=== PATIENT | female | born 1940 | race Two or more races ===

== ENCOUNTER → 2025-01-27 | Outpatient (CLI) | payer MEDICAID ==
[2025-01-27 11:14] LABS: Basophils # (auto) 0 10 ^3/uL (0-0.2); Basophils % (auto) 0.9 % (0.0-2.0); Eosinophils # (auto) 0 10 ^3/uL (0-0.8); Hematocrit 41.6 % (36.0-46.0); Hemoglobin 14.1 g/dL (12.2-16.2); Lymphocytes # (auto) 0.8 10 ^3/uL (0.4-5.4); Mean Corpuscular Hemoglobin 30.9 pg (28.0-32.0); Mean Corpuscular Hgb Conc. 33.8 g/dL (32.0-36.0); Mean Corpuscular Volume 91.6 fL (80.0-100.0); Monocytes # (auto) 0.3 10 ^3/uL (0-1.3); Monocytes % (auto) 7.3 % (0.0-12.0); Neutrophils # (auto) 3.6 10 ^3/uL (1.6-8.6); Neutrophils % (auto) 74.8 % (37.0-80.0); Nucleated Red Blood Cells % 0.1 %; Platelet Count (auto) 249 10^3/uL (140-450); Red Blood Cells 4.55 10^6/uL (4.0-5.20); Red Cell Distribution Width 13.4 % (11.8-14.3); White Blood Cell 4.8 10^3/uL (4.4-10.8)
[2025-01-27 11:25] LABS: Urine Blood Negative /uL (Negative); Urine Clarity Clear (Clear); Urine Color Light-Yellow (Yellow); Urine Protein, UAD Negative (Negative); Urine Specific Gravity 1.013 (1.001-1.035); Urine Urobilinogen Normal (Negative); Urine pH 6.5 (5.0-9.0)
[2025-01-27 11:31] LABS: Alanine Aminotransferase 12 U/L (7-40); Albumin 4.7 g/dL (3.2-4.8); Alkaline Phosphatase 50 U/L (46-116); Anion Gap 5 (5-15); Aspartate Aminotransferase 21 U/L (13-40); BUN/Creatinine Ratio 11.9 (10.0-20.0); Bilirubin, Total 0.8 mg/dL (0.2-1.0); Blood Urea Nitrogen 12 mg/dL (9-23); Carbon Dioxide 30 mmol/L (20-31); Chloride 101 mmol/L (98-107); Cholesterol 169 mg/dL (< 200); Glucose 105 mg/dL (74-106); HDL Cholesterol 58 mg/dL (40-59); LDL Cholesterol 99 mg/dL (< 100); Potassium 4.2 mmol/L (3.5-5.1); Sodium 136 mmol/L (136-145); Total Protein 7.5 g/dL (5.7-8.2); Triglycerides 66 mg/dL (< 150)
[2025-01-27 11:49] LABS: Micro Albumin < 3.0 mg/L (<30.0)
== END | disposition home or self-care (01) ==
LOC: LAB 10:47
PROVIDERS: ATTEND Family Medicine
DX: N18.31 Chronic kidney disease, stage 3a (principal); E78.5 Hyperlipidemia, unspecified; R73.9 Hyperglycemia, unspecified; E55.9 Vitamin D deficiency, unspecified; N39.498 Other specified urinary incontinence
CPT/HCPCS: 36415; 80053; 80061; 81003; 82043; 82306; 83036; 84443; 85025

== ENCOUNTER 2025-03-24 16:21 | Outpatient (CLI) | payer MEDICAID | END 2025-03-24 17:00 | disposition home or self-care (01) | LOC: LAB 16:21 | PROVIDERS: ATTEND Family Medicine | DX: Z12.11 Encounter for screening for malignant neoplasm of colon (principal) | CPT/HCPCS: 82270 ==

== ENCOUNTER 2025-06-06 17:40 | Emergency (ER) | payer MEDICAID, OTHER ==
[~2025-06-06] VITALS: Ht 167.6 cm; Wt 55.5 kg
--- NOTE | 2025-06-06 18:26 | ED.PDOC ---
Back pain HPI HPI Comments 35-year-old female presents to the ED with daughter chief complaint left side lower back pain. Patient reports pain 10/10 on pain scale throbbing and shooting in nature. Patient is unable to ambulate due to the pain. States was seen at urgent care several days ago no imaging done notes was prescribed a muscle relaxer which has not been helping. Does state she has two Norcos left from a dental procedure states took one earlier today around 11:00 a.m. which helped her pain and was able to function. Patient reports no known injury. She does denies saddle anesthesia, numbness, weakness, loss of bowel or bladder control or footdrop. Chief Complaint: Pelvic Pain Time Seen by MD: 18:10 Reviewed Notes: Nurses Notes, Medications, Allergies Allergies: Coded Allergies: Ciprofloxacin (Verified Allergy, Unknown, 06/06/25) Iodine (Verified Allergy, Unknown, 06/06/25) Sulfa Antibiotics (Verified Allergy, Unknown, 06/06/25) Home Meds Active Scripts Hydrocodone-Acetaminophen (Hydrocodone Bitartrate/AC 5-325 mg) 1 Tab Tab, 1 TAB PO Q6HP PRN, #20 TAB Prov:ISABELLA MCCURDY MD 06/06/25 Methylprednisolone (Medrol Dosepak) 4 Mg Angel, 4 MG PO UD for 6 Days, #21 TAB UAD Prov:MARLA DUNBAR 06/06/25 Information Source: Patient, Friend Mode of Arrival: Wheelchair Past Medical History Past Medical History (Other): Stage 3 Renal Disease gfr 50 Surgical History: Denies all surgeries SALES ENABLEMENT SPECIALIST History: No Pertinent SALES ENABLEMENT SPECIALIST History Family History Family History: Reviewed,noncontributory to illness Social History Smoker: Non-Smoker Alcohol: Denies ETOH Use Drugs: Denies Drug Use All Other Systems: Reviewed and Negative (see hpi) Physical Exam General Appearance: No Apparent Distress, Normal HEENT: Normal ENT Inspection, Pharynx Normal, TMs Normal Neck: Full Range of Motion, Non-Tender, Normal, Normal Inspection Respiratory: Chest Non-Tender, Lungs Clear, No Accessory Muscle Use, No Respiratory Distress, Normal Breath Sounds Cardiovascular: No Edema, No JVD, No Murmur, No Gallop, Normal Peripheral Pulses, Regular Rate/Rhythm Breast Exam: Deferred Gastrointestinal: No Organomegaly, Non Tender, No Pulsatile Mass, Normal Bowel Sounds, Soft Genitalia: Deferred Pelvic: Deferred Rectal: Deferred Extremities: No calf tenderness, Normal capillary refill, Normal inspection, Normal range of motion, Non-tender, No pedal edema Musculoskeletal : Apperance: Normal Neurologic: Alert, oil inspector II-XII nml as Tested, No Motor Deficits, Normal Affect, Normal Mood, No Sensory Deficits Cerebellar Function: Normal Reflexes: Normal Skin: Dry, Normal Color, Warm Lymphatic: No Adenopathy Was a procedure done? Was a procedure done?: No Back Pain Differential Dx Differential Diagnosis: Fracture, Musculoskeletal Pain, Strain X-Ray, Labs, Meds, VS Vital Signs Date Time Temp Pulse Resp B/P (MAP) Pulse Ox O2 Delivery O2 Flow Rate FiO2 06/06/25 19:12 68 20 97 Room Air 06/06/25 19:12 98.4 68 20 130/73 (92) 97 98.4 06/06/25 17:42 97.5 68 16 126/75 94 97.5 Current Medications Medications (Trade) Dose Ordered Sig/Matthew Route Start Time Stop Time Status Last Admin Dexamethasone Sodium Phosphate (Decadron Injection) 10 mg ONCE ONCE IM 06/06/25 18:30 06/06/25 18:31 DC 06/06/25 19:09 Acetaminophen/ Hydrocodone Bitart ([place] 5/325MG Tab) 1 tab ONCE ONCE PO 06/06/25 18:30 06/06/25 18:31 DC 06/06/25 19:01 X-Ray, Labs, Meds, VS Comment IMPRESSION: No acute fracture or traumatic malalignment. Moderate left convexity scoliosis of the lower lumbar spine. Multilevel degenerative spinal stenosis which is mild at L4-L5 and L5-S1. Multilevel degenerative neural foraminal stenosis up to moderate on the right at L4-L5 and moderate on the left at L5-S1. Cholelithiasis. Mild distal colonic diverticulosis. CT reviewed noted marked neuro foraminal stenosis at L4/L5 and L5-S1. No claudication noted. Patient was given Decadron 10 mg IM and [place] 5 mg p.o. reports significant improvement in pain able to ambulate without difficulty and using her cane. Requesting discharge at this time. Script trial of [place] advised take medications as prescribed side effects discussed advised no driving or alcohol while on medications. We will also trial Medrol Dosepak. Patient h as a appointment on Sunday with physical therapy. Follow up with her PCP as well within 2-3 days consider referral to pain management if symptoms persist. Discussed ER return precautions with daughter and patient advised if increasing pain, numbness, weakness, saddle anesthesia, foot drop, loss of bowel or bladder control return to the ER immediately. Patient and daughter indicate understanding agree with discharge plan of care. Images Reviewed?: Images reviewed and evaluated by me Time of 1ST Reevaluation: 18:20 Reevaluation 1ST: Unchanged Time of 2ND Reevaluation: 21:05 Reevaluation 2ND: Improved Patient Education/Counseling: Diagnosis, Treatment, Prognosis, Need For Follow Up Family Education/Counseling: Diagnosis, Treatment, Prognosis, Need For Follow Up SEPSIS Sepsis Screen Date sepsis recognized/suspect: Jun 06, 2025 Time Sepsis recognized/suspect: 1743 Recent Procedure: No On Antibiotic Therapy: No Respiratory Rate >20: No Heart Rate >90: No Temp<36 C (96.8 F) or >38.3 C: No SBP <90 or MAP <65 mmHG: No New Acute Mental Status Change: No Is the patient on CPAP, BIPAP,: No Physician Orders Ls Spine Wo Contrast (06/06/25 18:21) Vital Signs Date Time Temp Pulse Resp B/P (MAP) Pulse Ox O2 Delivery O2 Flow Rate FiO2 06/06/25 19:12 68 20 97 Room Air 06/06/25 19:12 98.4 68 20 130/73 (92) 97 98.4 06/06/25 17:42 97.5 68 16 126/75 94 97.5 Medications Medications Dose Ordered Sig/Matthew Route Start Time Stop Time Status Last Admin Dose Admin Acetaminophen/ Hydrocodone Bitart 1 tab ONCE ONCE PO 06/06/25 18:30 06/06/25 18:31 DC 06/06/25 19:01 Dexamethasone Sodium Phosphate 10 mg ONCE ONCE IM 06/06/25 18:30 06/06/25 18:31 DC 06/06/25 19:09 Departure 1 Departure Time of Disposition: 21:05 Impression: Primary Impression: Spinal stenosis at L4-L5 level Additional Impression: Strain of lumbar paraspinous muscle Qualified Codes: S39.012A - Strain of muscle, fascia and tendon of lower back, initial encounter Disposition: HOME / SELF CARE / HOMELESS Condition: Stable e-Prescriptions Hydrocodone-Acetaminophen (Hydrocodone Bitartrate/AC 5-325 mg) 1 Tab Tab 1 TAB PO Q6HP PRN, #20 TAB Prov: ISABELLA MCCURDY MD 06/06/25 Methylprednisolone (Medrol Dosepak) 4 Mg Angel 4 MG PO UD for 6 Days, #21 TAB UAD Prov: MARLA DUNBAR 06/06/25 Discharged With: Friend Critical Care Note Critical Care Time?: No Stability Stability form required: No MARLA DUNBAR Jun 06, 2025 18:26
[2025-06-06] MEDS: HYDROcodone-ACET 5/325MG TAB PO ONE (19:01)
[2025-06-06 19:12] VITALS: BP 130/73; PULSE 68; RESP 20; TEMP 98.4; O2SAT 97
--- NOTE | 2025-06-06 20:55 | DVH ---
CLINICAL HISTORY: left side back radiculopathy TECHNIQUE: CT of the lumbar spine was performed without intravenous contrast. This exam was performed according to our departmental dose optimization program. Up-to-date CT equipment and radiation dose reduction techniques are utilized as appropriate. 10.52 CTDI: 10.52 DLP: 345.84 WID: COMPARISON: None FINDINGS: There is moderate left convexity scoliosis of the lower lumbar spine. There is mild left lateral list hesis of the L4 vertebral body relative to the L5 vertebral body on coronal projection. Alignment is otherwise maintained. Vertebral body heights are maintained. There is bony demineralization. There i s no acute fracture. There is multilevel degenerative disc disease and disc space narrowing of the kyle mbar spine up to moderate at L4-L5. Mild Degenerative spinal stenosis at L4-L5 and L5-S1. Multilevel degenerative neural foraminal stenosis up to moderate on the right at L4-L5 and moderate on the left at L5-S1. The posterior paraspinal soft tissues are unremarkable. Cholelithiasis. Moderate calcified plaque in the visualized aortoiliac vessels. Mild distal colonic diverticulosis. IMPRESSION: No acute fracture or traumatic malalignment. Moderate left convexity scoliosis of the lower lumbar spine. Multilevel degenerative spinal stenosis which is mild at L4-L5 and L5-S1. Multilevel degenerative neural foraminal stenosis up to moderate on the right at L4-L5 and moderate o n the left at L5-S1. Cholelithiasis. Mild distal colonic diverticulosis.
[2025-06-06] MEDS ORDERED: METH4PAK PO (21:08)
[2025-06-06] MEDS ORDERED: HYDR-4902 PO (21:11)
== END 2025-06-06 21:19 | disposition home or self-care (01) ==
LOC: ER 17:40
DX: S39.012A Strain of muscle, fascia and tendon of lower back, initial encounter (principal); M48.061 Spinal stenosis, lumbar region without neurogenic claudication; Z88.8 Allergy status to other drugs, medicaments and biological substances; Z88.2 Allergy status to sulfonamides; Z88.1 Allergy status to other antibiotic agents; Z79.899 Other long term (current) drug therapy; X58.XXXA Exposure to other specified factors, initial encounter; Y93.89 Activity, other specified; Y92.89 Other specified places as the place of occurrence of the external cause; Y99.8 Other external cause status
CPT/HCPCS: 72131; 96372; 99285; J1100

== ENCOUNTER → 2025-06-30 | Outpatient (CLI) | payer MEDICAID, OTHER ==
[~2025-06-30] MED LIST: HYDR-4902 PO
[2025-06-30 11:37] LABS: Alanine Aminotransferase 11 U/L (7-40); Albumin 4.5 g/dL (3.2-4.8); Alkaline Phosphatase 64 U/L (46-116); Anion Gap 7 (5-15); BUN/Creatinine Ratio 10.9 (10.0-20.0); Blood Urea Nitrogen 10 mg/dL (9-23); Calcium 9.5 mg/dL (8.7-10.4); Carbon Dioxide 31 mmol/L (20-31); Chloride 103 mmol/L (98-107); Glucose 95 mg/dL (74-106); Potassium 4.2 mmol/L (3.5-5.1); Sodium 141 mmol/L (136-145); Total Protein 7.3 g/dL (5.7-8.2)
[2025-06-30 12:13] LABS: Bilirubin, Total 0.6 mg/dL (0.2-1.0)
[2025-06-30 19:04] LABS: Triglycerides 65 mg/dL (< 150)
[2025-06-30 19:06] LABS: Cholesterol 168 mg/dL (< 200); HDL Cholesterol 58 mg/dL (40-59)
== END | disposition home or self-care (01) ==
LOC: LAB 10:34
PROVIDERS: ATTEND Family Medicine
DX: N18.31 Chronic kidney disease, stage 3a (principal); E78.5 Hyperlipidemia, unspecified
CPT/HCPCS: 36415; 80053; 80061; 80069; 82043; 83036

== ENCOUNTER 2025-08-21 13:33 | Emergency (ER) | payer MEDICAID, OTHER ==
[~2025-08-21] VITALS: Ht 167.6 cm; Wt 54.4 kg
--- NOTE | 2025-08-21 14:39 | ED.PDOC ---
Back pain HPI HPI Comments 85 y.o female presents to the ED for a chief complaint of lower back pain. Patient reports hx of DJD, is trying to establish care with physical therapist and had a recent steroid injection given pain flare up and had relief. Patient states 3 days ago she slid a heavy box with her left leg and the following day woke up the back pain. No recent falls reported. Chief Complaint: Pelvic Pain Time Seen by MD: 14:28 Reviewed Notes: Nurses Notes, Medications, Allergies Allergies: Coded Allergies: Ciprofloxacin (Verified Allergy, Unknown, 06/06/25) Iodine (Verified Allergy, Unknown, 06/06/25) Sulfa Antibiotics (Verified Allergy, Unknown, 06/06/25) Home Meds Active Scripts Hydrocodone-Acetaminophen (Hydrocodone Bitartrate/AC 5-325 mg) 1 Tab Tab, 1 TAB PO Q6HP PRN, #20 TAB Prov:ISABELLA MCCURDY MD 06/06/25 Information Source: Patient Mode of Arrival: Ambulatory Timing: Hours Duration: Since onset Location of Back pain: (L) Lower back, (B) Lower back Severity: Moderate Quality: Sharp Onset: Other Circumstance: Other History of: Chronic Back Pain Modifying Factors: Nothing Associated signs and symptoms: None Past Medical History Past Medical History (Other): DJD Surgical History: Denies all surgeries PICKLE WATER PUMP OPERATOR History: No Pertinent PICKLE WATER PUMP OPERATOR History Family History Family History: Reviewed,noncontributory to illness Social History Smoker: Non-Smoker Alcohol: Denies ETOH Use Drugs: Denies Drug Use Lives In: Home Constitutional: denies: chills, diaphoresis, fatigue, fever, malaise, sweats, weakness, others EENTM: denies: blurred vision, double vision, ear bleeding, ear discharge, ear drainage, ear pain, ear ringing, eye pain, eye redness, hearing loss, mouth pain, mouth swelling, nasal discharge, nose bleeding, nose congestion, nose pain, photophobia, tearing, throat pain, throat swelling, voice changes, others Respiratory: denies: cough, hemoptysis, orthopnea, SOB at rest, shortness of breath, SOB with excertion, stridor, wheezing, others Cardiovascular: denies: chest pain, dizzy spells, diaphoresis, Dyspnea on exertion, edema, irregular heart beat, left arm pain, lightheadedness, palpitations, PND, syncope, others Gastrointestinal: denies: abdomen distended, abdominal pain, blood streaked bowels, constipated, diarrhea, dysphagia, difficulty swallowing, hematemesis, melena, nausea, poor appetite, poor fluid intake, rectal bleeding, rectal pain, vomiting, others Genitourinary: denies: abnormal vagina bleeding, burning, dyspareunia, dysuria, flank pain, frequency, hematuria, incontinence, pain, , vagina discharge, urgency, others Neurological: denies: dizziness, fainting, headache, left sided numbness, left sided weakness, numbness, paresthesia, pre-existing deficit, right sided numbness, right sided weakness, seizure, speech problems, tingling, tremors, weakness, others Musculoskeletal: reports: back pain; denies: gout, joint pain, joint swelling, muscle pain, muscle stiffness, neck pain, others Integumetry: denies: bruises, change in color, change in hair/nails, dryness, laceration, lesions, lumps, rash, wounds, others Allergic/Immunocompromised: denies: Difficulty Healing, Frequent Infections, Hives, Itching, others Hematologic/Lymphatic: denies: anemia, blood clots, easy bleeding, easy bruising, swollen glands, others Endocrine: denies: excessive hunger, excessive sweating, excessive thirst, excessive urination, flushing, intolerance to cold, intolerance to heat, unexplained weight gain, unexplained weight loss, others Psychiatric: denies: anxiety, bipolar disorder, depression, hopeless, panic disorder, schizophrenia, sleepless, suicidal, others All Other Systems: Reviewed and Negative Physical Exam General Appearance: Moderate Distress HEENT: Normal ENT Inspection, Pharynx Normal, TMs Normal Neck: Full Range of Motion, Non-Tender, Normal, Normal Inspection Respiratory: Chest Non-Tender, Lungs Clear, No Accessory Muscle Use, No Respiratory Distress, Normal Breath Sounds Cardiovascular: No Edema, No JVD, No Murmur, No Gallop, Normal Peripheral Pulses, Regular Rate/Rhythm Breast Exam: Deferred Gastrointestinal: No Organomegaly, Non Tender, No Pulsatile Mass, Normal Bowel Sounds, Soft Genitalia: Deferred Pelvic: Deferred Rectal: Deferred Extremities: No calf tenderness, Normal range of motion, No pedal edema Musculoskeletal : Apperance: Normal Neurologic: Alert, No Motor Deficits, No Sensory Deficits Cerebellar Function: NOT DONE Reflexes: NOT DONE Skin: Normal Color Peripheral Pulses: 3+ Radial (R), 3+ Radial (L) Lymphatic: No Adenopathy Was a procedure done? Was a procedure done?: No Back Pain Differential Dx Differential Diagnosis: DJD, Musculoskeletal Pain, Strain X-Ray, Labs, Meds, VS Vital Signs Date Time Temp Pulse Resp B/P (MAP) Pulse Ox O2 Delivery O2 Flow Rate FiO2 08/21/25 16:29 97.5 66 16 150/74 (99) 97 97.5 08/21/25 13:42 99.4 77 15 112/58 96 99.4 [facility] [id number] [place] [address] Ph: [phone] DIAGNOSTIC IMAGING Diagnostic Imaging Report : [id number] Signed PATIENT: CLAYTON GALEANA ACCT: [id number] UNIT: [id number] : 1940 LOC: ER ROOM / BED: / AGE / SEX: 85 / F ADM STATUS: REG ER SERVICE 1430 ORDERING PHYSICIAN: ROSALIND HIGGINS MD PROCEDURE(s): LS2CT - LS SPINE WO CONTRAST REASON: fall ORDER NUMBER(s): [id number], ACCESSION NUMBER(s): [id number] CT LS SPINE WO CONTRAST Indication: fall EXAM DATE: 08/21/2025 02:32 PM COMPARISON: CT LS SPINE WO CONTRAST on DOS: 06/06/25 TECHNIQUE: CT of the lumbar spine without intravenous contrast. RADIATION DOSE: CTDIvol: 11.67 mGy, DLP: 375.82 mGy*cm FINDINGS: There is an acute fracture of the L5 vertebral body which extends through the superior and inferior endplates. No significant loss of height. No retropulsion. There is severe multilevel disc space narrowing. Lumbar levocurvature. Moderate bilateral sacroiliac degenerative joint disease. Severe neural foraminal stenosis at L4-5 and L5-S1. Moderate to severe neural foraminal stenosis at L2-3, L3-4. Moderate neural foraminal stenosis L1-2. Moderate spinal canal stenosis L4-5. Aortic atherosclerotic disease. Cholelithiasis. Colonic diverticular disease. IMPRESSION: Acute L5 vertebral body fracture extending through the superior, inferior endplates. No significant loss of height or retropulsion. Recommend MRI lumbar spine 2 kim characterize as well to exclude other lumbar spine fractures. Severe lumbar degenerative disc disease. Lumbar levocurvature. ATED BY: LAUREL OMALLEY MD DICTATED DATE/TIME: 08/21/251515 SIGNED BY: LAUREL OMALLEY MD SIGNED DATE/TIME: 08/21/251515 CC: [place] [id number] Ph: [phone] DIAGNOSTIC IMAGING Diagnostic Imaging Report : [id number] Signed PATIENT: CLAYTON GALEANA ACCT: [id number] UNIT: [id number] : 1940 LOC: ER ROOM / BED: / AGE / SEX: 85 / F ADM STATUS: REG ER SERVICE 1430 ORDERING PHYSICIAN: ROSALIND HIGGINS MD PROCEDURE(s): PL2CT - PELVIS WO CONTRAST REASON: fall ORDER NUMBER(s): [id number], ACCESSION NUMBER(s): [id number] History: fall, pain Comparison Study: None Technique: Multidetector spiral CT of the pelvis was performed from iliac crests to pubic symphysis. 100 cc of intravenous contrast was administered during this examination. Portal venous imaging was obtained. Axial, coronal and sagittal multiplanar reformats were performed by the technologist on a separate workstation. Radiation Dose : CT Dose: CTDI volume is 11.7 mGy. Dose-length product is 375.82 mGy*cm Findings: Osteopenia. There has been prior ORIF of the proximal left femur with cancellous bone screws. There is serpiginous sclerosis of the left femoral head, which is in keeping with avascular necrosis. No significant femoral head collapse. No hardware abnormality. Moderate bilateral hip osteoarthritis with joint space narrowing and osteo phytes. No acute fracture or dislocation. Levoscoliosis of the lumbar spine. The soft tissues are unremarkable. No fluid collections. IMPRESSION: No acute fracture or dislocation No hardware abnormality. Avascular necrosis of the left hip Moderate bilateral hip osteoarthritis END IMPRESSION: ATED BY: KAREN MCDANIEL MD DICTATED DATE/TIME: 08/21/25 1508 SIGNED BY: KAREN MCDANIEL MD SIGNED DATE/TIME: 08/21/25 1508 CC: Patient alert. Status post pelvic pain. Vitals stable. Answering questions. CT scan of the pelvis does not show any acute fracture. CT scan of the lumbar spine does show L5 fracture. Spoke with spine surgeon stated that she can follow up as outpatient. Was told to the family not to move so much pain No lifting. Was given injection of steroid. Was told to follow up with her primary care physician. Was told to come back if there is any problem. Time of 1ST Reevaluation: 14:33 Reevaluation 1ST: Improved Patient Education/Counseling: Diagnosis, Treatment, Prognosis Family Education/Counseling: No Family Present SEPSIS Sepsis Screen Date sepsis recognized/suspect: Aug 21, 2025 Time Sepsis recognized/suspect: 1348 Recent Procedure: No On Antibiotic Therapy: No Respiratory Rate >20: No Heart Rate >90: No Temp<36 C (96.8 F) or >38.3 C: No SBP <90 or MAP <65 mmHG: No New Acute Mental Status Change: No Is the patient on CPAP, BIPAP,: No Physician Orders Ls Spine Wo Contrast (08/21/25 14:30) Pelvis Wo Contrast (08/21/25 14:30) Vital Signs Date Time Temp Pulse Resp B/P (MAP) Pulse Ox O2 Delivery O2 Flow Rate FiO2 08/21/25 16:29 97.5 66 16 150/74 (99) 97 97.5 08/21/25 13:42 99.4 77 15 112/58 96 99.4 Departure 1 Departure Time of Disposition: 17:27 Impression: Primary Impression: Lumbar vertebral fracture Qualified Codes: S32.059A - Unspecified fracture of fifth lumbar vertebra, initial encounter for closed fracture Disposition: 01 HOME / SELF CARE / HOMELESS Condition: Good Discharged With: Self Critical Care Note Critical Care Time?: No Stability Stability form required: No I personally scribed for ROSALIND HIGGINS MD ([email or web address]) on 08/21/25 at 14:39. Electronically submitted by Lolita Olvera ([facility]). I personally scribed for ROSALIND HIGGINS MD ([email or web address]) on 08/21/25 at 16:32. Electronically submitted by Lolita Olvera ([facility]). ROSALIND HIGGINS MD Aug 21, 2025 14:39
--- NOTE | 2025-08-21 15:10 | DVH ---
History: fall, pain Comparison Study: None Technique: Multidetector spiral CT of the pelvis was performed from iliac crests to pubic symphysis. 100 cc of intravenous contrast was administered during this examination. Portal venous imaging was obtained. Axial, coronal and sagittal multiplanar reformats were performed by the technologist on a separate workstation. Radiation Dose : CT Dose: CTDI volume is 11.7 mGy. Dose-length product is 375.82 mGy*cm Findings: Osteopenia. There has been prior ORIF of the proximal left femur with cancellous bone screws. There is serpiginou s sclerosis of the left femoral head, which is in keeping with avascular necrosis. No significant fe moral head collapse. No hardware abnormality. Moderate bilateral hip osteoarthritis with joint space narrowing and osteophytes. No acute fracture or dislocation. Levoscoliosis of the lumbar spine. The soft tissues are unremarkable. No fluid collections. IMPRESSION: No acute fracture or dislocation No hardware abnormality. Avascular necrosis of the left hip Moderate bilateral hip osteoarthritis END IMPRESSION:
--- NOTE | 2025-08-21 15:14 | DVH ---
CT LS SPINE WO CONTRAST Indication: fall EXAM DATE: 08/21/2025 02:32 PM COMPARISON: CT LS SPINE WO CONTRAST on DOS: 06/06/25 TECHNIQUE: CT of the lumbar spine without intravenous contrast. RADIATION DOSE: CTDIvol: 11.67 mGy, DLP: 375.82 mGy*cm FINDINGS: There is an acute fracture of the L5 vertebral body which extends through the superior and inferior e ndplates. No significant loss of height. No retropulsion. There is severe multilevel disc space narrowing. Lumbar levocurvature. Moderate bilateral sacroiliac degenerative joint disease. Severe neural foraminal stenosis at L4-5 and L5-S1. Moderate to severe neural foraminal stenosis at L 2-3, L3-4. Moderate neural foraminal stenosis L1-2. Moderate spinal canal stenosis L4-5. Aortic atherosclerotic disease. Cholelithiasis. Colonic diverticular disease. IMPRESSION: Acute L5 vertebral body fracture extending through the superior, inferior endplates. No significant l oss of height or retropulsion. Recommend MRI lumbar spine 2 kim characterize as well to exclude ot her lumbar spine fractures. Severe lumbar degenerative disc disease. Lumbar levocurvature.
[2025-08-21] MEDS: methylPREDNISolone SOD SUCC 125 MG/2 ML VL IM ONE (17:47)
[2025-08-21 18:14] VITALS: BP 140/65; PULSE 76; RESP 16; TEMP 98.2; O2SAT 95
== END 2025-08-21 18:21 | disposition home or self-care (01) ==
LOC: ER 13:33
DX: S32.059A Unspecified fracture of fifth lumbar vertebra, initial encounter for closed fracture (principal); Z88.8 Allergy status to other drugs, medicaments and biological substances; Z88.1 Allergy status to other antibiotic agents; Z88.2 Allergy status to sulfonamides; X58.XXXA Exposure to other specified factors, initial encounter; Y93.89 Activity, other specified; Y92.89 Other specified places as the place of occurrence of the external cause; Y99.8 Other external cause status
CPT/HCPCS: 72131; 72192; 96372; 99285; J2919